=== PATIENT | female | born 1955 | race Caucasian/White ===

== ENCOUNTER → 2016-11-16 | Outpatient (CLI) | payer OTHER, MEDICAID ==
[~2016-11-16] MED LIST: ALBU18HF IH; ALBU8.5H3 INH; ALLO100T30 PO; ALPR1TAB2 PO; ASPI-496 PO; ATOR40TA PO; Amlodipine Besylate PO; BECL8.7A5 INH; CARV6.2512 PO; CEFD300C37 PO; CELE200C PO; CHOL100018 PO; CHOL500014 PO; CITA20TA9 PO; COMPAZINE PO; CYCL-259 PO; DEXA4TAB PO; DIAZ5TAB PO; DOCU100C8 PO; ENOX40SY4 SQ; FLUC200T PO; FURO-93 PO; HYDR15SO3 PO; IPRA14.7 INH; IPRA3AMP INH; IPRA4AER INH; LEVE500T53 PO; LEVO100T PO; LEVO175T5 PO; LEVO200T PO; LEVO200T5 PO; LISI-167 PO; LISI-170 PO; LISI5TAB7 PO; LORA-445 PO; METH750T87 PO; METO25TA35 PO; MOME17SP NS; MORP100T27 PO; MORP30TA81 PO; OMEG500C3 PO; ONDA4TAB10 PO; OXYC-74 PO; POTA10TA31; PRED20TA PO; PROAIR INH; QVAR INH; TIZA4CAP PO; TRAM50TA2 PO; ZONI50CA2 PO
== END ==
LOC: CFH 12:50
PROVIDERS: ATTEND Nurse Practitioner Family
DX: Z02.9 Encounter for administrative examinations, unspecified (principal)

== ENCOUNTER → 2017-02-01 | Outpatient (CLI) | payer OTHER, MEDICAID | END | disposition home or self-care (01) | LOC: CFH 10:19 | PROVIDERS: ATTEND Nurse Practitioner Family | DX: Z12.31 Encounter for screening mammogram for malignant neoplasm of breast (principal); Z85.3 Personal history of malignant neoplasm of breast; Z92.21 Personal history of antineoplastic chemotherapy; Z92.3 Personal history of irradiation; Z90.12 Acquired absence of left breast and nipple | CPT/HCPCS: G0202 ==

== ENCOUNTER 2018-01-28 13:42 | Inpatient (IN) | payer OTHER, MEDICAID ==
[~2018-01-28] VITALS: Ht 157.5 cm; Wt 69.3 kg
[~2018-01-28 13:42] MED LIST changes: -ALBU8.5H3 INH; +ALBU8.5H8 INH; -BECL8.7A5 INH; +BECL8.7A7 INH; +CHOL100012 PO; -CHOL100018 PO; -CHOL500014 PO; +CHOL500045 PO; +DOCU100C33 PO; -DOCU100C8 PO; -IPRA3AMP INH; +IPRA3AMP30 INH; +OXYC-296 PO; -OXYC-74 PO
[2018-01-28] MEDS ORDERED: SODIUM CHLORIDE 0.9% 1,000ML IVBOLUS ONE ×2 (14:00)
[2018-01-28 14:34] LABS: BASOPHILS # (AUTO) 0.06 x10^3/uL (0-0.1); BASOPHILS % (AUTO) 1 % (0-1); EOSINOPHILS # (AUTO) 0.36 x10^3/uL (0-0.4); EOSINOPHILS % (AUTO) 4 % (1-7); LYMPHOCYTES % (AUTO) 15 % (22-44); MD NO; MEAN CORPUSCULAR HEMOGLOBIN 34.3 pg (27.0-34.8); MEAN CORPUSCULAR HGB CONC 34.3 g/dL (32.4-35.8); MEAN PLATELET VOLUME 8.1 fL (7.4-10.4); MONOCYTES # (AUTO) 0.67 x10^3/uL (0.2-0.8); MONOCYTES % (AUTO) 8 % (2-9); NEUTROPHILS # (AUTO) 5.98 x10^3/uL (1.8-6.8); NEUTROPHILS % (AUTO) 72 % (42-75); PLATELET COUNT 243 x10^3/uL (130-400); RED BLOOD COUNT 3.22 x10^6/uL (3.82-5.3); RED CELL DISTRIBUTION WIDTH 13.4 % (9.6-15.2)
[2018-01-28 14:43] LABS: ALANINE AMINOTRANSFERASE 11 U/L (12-78); ALBUMIN 2.8 g/dL (3.4-5.0); ANION GAP 7 mmol/L (5-15); CALCIUM 7.5 mg/dL (8.5-10.1); CHLORIDE 120 mmol/L (98-107)
[2018-01-28 14:47] LABS: ALKALINE PHOSPHATASE 60 U/L (45-117); BILIRUBIN,TOTAL 0.2 mg/dL (0.2-1.0); TOTAL PROTEIN 6.1 g/dL (6.4-8.2); TROPONIN I < 0.015 ng/mL (0.000-0.045)
[2018-01-28 14:55] LABS: INTERNATIONAL NORMALIZED RATIO 1.01 (0.93-1.1); PROTHROMBIN TIME 10.4 Seconds (9.6-11.5)
[2018-01-28] MEDS ORDERED: AZITHROMYCIN 500 MG in SODIUM CHLORIDE 0.9% 250 ML IV ONE (15:00)
[2018-01-28] MEDS ORDERED: CEFTRIAXONE PMX 1GM/50ML 50 ML IV ONE (15:00)
[2018-01-28] MEDS ORDERED: CEFTRIAXONE PMX 1GM/50ML 50 ML ONE (15:16)
[2018-01-28] MEDS ORDERED: POLYETHYLENE GLYCOL 17 GM PACKET PO PRN (16:30)
[2018-01-28] MEDS ORDERED: DOCUSATE 100 MG CAPSULE PO PRN (16:30)
[2018-01-28] MEDS ORDERED: ACETAMINOPHEN 325 MG TABLET PO PRN (16:30)
[2018-01-28] MEDS ORDERED: SODIUM CHLORIDE 0.9% 1,000 ML IV SCH (16:30)
[2018-01-28] MEDS ORDERED: BISACODYL 10 MG SUPP PR PRN (16:30)
[2018-01-28] MEDS ORDERED: MORP-52 PO (17:28)
[2018-01-28] MEDS ORDERED: ALBUTEROL SULFATE 2.5 MG/3 ML NPPB PRN (17:30)
[2018-01-28] MEDS ORDERED: LEVE500T53 PO (17:34)
[2018-01-28] MEDS ORDERED: ATOR20TA9 PO (17:34)
[2018-01-28] MEDS ORDERED: CYCL-259 PO (17:34)
[2018-01-28 17:38] VITALS: BP 148/95
[2018-01-28] MEDS ORDERED: SODIUM BICARBONATE 8.4% 150 MEQ in DEXTROSE 5% 1,000 ML IV ONE (19:30)
[2018-01-28 19:46] VITALS: BP 118/74
[2018-01-28 20:06] LABS: MICROSCOPIC INDICATED
[2018-01-28 20:27] LABS: CULTURE INDICATED? NO
[2018-01-28] MEDS ORDERED: ALBUTEROL/IPRATROPIUM 2.5MG/0.5MG, 3 ML NPPB PRN (20:30)
[2018-01-28] MEDS: HEPARIN 5,000 UNITS/ML, 1ML SQ SCH (20:37)
[2018-01-28] MEDS: LEVETIRACETAM 500 MG TABLET PO SCH (20:37)
[2018-01-29] MEDS: LEVETIRACETAM 500 MG TABLET PO SCH ×4 (01:22→19:45)
[2018-01-29 01:52] VITALS: BP 100/64
[2018-01-29] MEDS: OXYcodone/APAP 10/325MG TABLET PO PRN ×3 (03:29→13:56)
[2018-01-29] MEDS: LEVOTHYROXINE 100 MCG TABLET PO SCH (05:16)
[2018-01-29] MEDS: HEPARIN 5,000 UNITS/ML, 1ML SQ SCH ×3 (05:16→20:50)
[2018-01-29 05:21] LABS: ANION GAP 3 mmol/L (5-15); CALCIUM 7.3 mg/dL (8.5-10.1); CHLORIDE 122 mmol/L (98-107)
[2018-01-29 05:22] LABS: BASOPHILS # (AUTO) 0.01 x10^3/uL (0-0.1); BASOPHILS % (AUTO) 0 % (0-1); EOSINOPHILS % (AUTO) 4 % (1-7); LYMPHOCYTES # (AUTO) 1.12 x10^3/uL (1-3.4); LYMPHOCYTES % (AUTO) 22 % (22-44); MD NO; MEAN CORPUSCULAR HEMOGLOBIN 34.2 pg (27.0-34.8); MEAN CORPUSCULAR VOLUME 100.6 fL (80-100); MEAN PLATELET VOLUME 8.3 fL (7.4-10.4); MONOCYTES # (AUTO) 0.57 x10^3/uL (0.2-0.8); MONOCYTES % (AUTO) 11 % (2-9); NEUTROPHILS # (AUTO) 3.17 x10^3/uL (1.8-6.8); NEUTROPHILS % (AUTO) 63 % (42-75); PLATELET COUNT 204 x10^3/uL (130-400); RED BLOOD COUNT 2.93 x10^6/uL (3.82-5.3); RED CELL DISTRIBUTION WIDTH 14.1 % (9.6-15.2)
[2018-01-29 05:23] LABS: CREATININE 1.58 mg/dL (0.55-1.02)
[2018-01-29 07:16] VITALS: BP 107/71
[2018-01-29 07:45] LABS: MEAN CORPUSCULAR HEMOGLOBIN 33.7 pg (27.0-34.8); MEAN CORPUSCULAR HGB CONC 33.9 g/dL (32.4-35.8); MEAN CORPUSCULAR VOLUME 99.5 fL (80-100); MEAN PLATELET VOLUME 7.9 fL (7.4-10.4); PLATELET COUNT 202 x10^3/uL (130-400); RED BLOOD COUNT 2.93 x10^6/uL (3.82-5.3); RED CELL DISTRIBUTION WIDTH 13.6 % (9.6-15.2)
[2018-01-29 07:47] LABS: MD YES
[2018-01-29 07:58] LABS: ALANINE AMINOTRANSFERASE 10 U/L (12-78); ALBUMIN 2.4 g/dL (3.4-5.0); ANION GAP 5 mmol/L (5-15); CALCIUM 7.2 mg/dL (8.5-10.1); CHLORIDE 121 mmol/L (98-107); CREATININE 1.29 mg/dL (0.55-1.02)
[2018-01-29 07:59] LABS: BASOS#(MANUAL) 0.05 x10^3/uL (0-0.1); BASOS% (MANUAL) 1 % (0-1); EOS#(MANUAL) 0.24 x10^3/uL (0.0-0.4); EOS% (MANUAL) 5 % (1-7); LYMPH#(MANUAL) 1.01 x10^3/uL (1-3.4); LYMPHS% (MANUAL) 21 % (22-44); MONOS#(MANUAL) 0.53 x10^3/uL (0.3-2.7); MONOS% (MANUAL) 11 % (2-9); SEG#(MANUAL) 2.98 x10^3/uL (1.8-6.8); SEGS% (MANUAL) 62 % (42-75)
[2018-01-29 08:00] LABS: <PLATELET ESTIMATE> ADEQUATE; <PLT MORPHOLOGY> NORMAL PLT MORPH; <RBC MORPHOLOGY> NORMAL; ALKALINE PHOSPHATASE 52 U/L (45-117); BILIRUBIN,TOTAL 0.2 mg/dL (0.2-1.0); TOTAL PROTEIN 5.3 g/dL (6.4-8.2)
[2018-01-29 08:02] LABS: CALCIUM 7.2 mg/dL (8.5-10.1)
[2018-01-29 08:15] VITALS: BP 120/72
[2018-01-29] MEDS ORDERED: AZITHROMYCIN 500 MG in SODIUM CHLORIDE 0.9% 250 ML IV SCH (09:00)
[2018-01-29] MEDS: ZONISAMIDE 50 MG CAPSULE PO SCH ×2 (09:00→11:31)
[2018-01-29] MEDS: CEFTRIAXONE 1,000 MG in SODIUM CHLORIDE 0.9% 50 ML IV SCH ×2 (09:27→11:31)
[2018-01-29] MEDS: FLUTICASONE/VILANTEROL 100-25MCG/INH INH SCH (11:31)
[2018-01-29] MEDS ORDERED: ERGOCALCIFEROL 50,000 UNIT CAPSULE PO SCH (13:00)
[2018-01-29] MEDS: SODIUM CHLORIDE 0.45% 1,000 ML IV SCH (13:50)
[2018-01-29 14:05] VITALS: BP 109/66
[2018-01-29 18:50] VITALS: BP 112/72
[2018-01-29] MEDS: DOXYCYCLINE 100MG TABLET PO SCH (20:50)
[2018-01-30] MEDS: OXYcodone/APAP 10/325MG TABLET PO PRN ×2 (01:16→13:18)
[2018-01-30] MEDS: LEVETIRACETAM 500 MG TABLET PO SCH ×4 (01:16→19:46)
[2018-01-30] MEDS: SODIUM CHLORIDE 0.45% 1,000 ML IV SCH ×3 (01:16→16:34)
[2018-01-30 01:21] VITALS: BP 110/71
[2018-01-30] MEDS: HEPARIN 5,000 UNITS/ML, 1ML SQ SCH ×3 (05:42→21:27)
[2018-01-30] MEDS: LEVOTHYROXINE 100 MCG TABLET PO SCH (05:42)
[2018-01-30 05:45] LABS: BASOPHILS # (AUTO) 0.03 x10^3/uL (0-0.1); BASOPHILS % (AUTO) 1 % (0-1); EOSINOPHILS # (AUTO) 0.18 x10^3/uL (0-0.4); EOSINOPHILS % (AUTO) 6 % (1-7); LYMPHOCYTES # (AUTO) 1.08 x10^3/uL (1-3.4); LYMPHOCYTES % (AUTO) 34 % (22-44); MD NO; MEAN CORPUSCULAR HEMOGLOBIN 34.4 pg (27.0-34.8); MEAN CORPUSCULAR HGB CONC 34.8 g/dL (32.4-35.8); MEAN CORPUSCULAR VOLUME 98.9 fL (80-100); MEAN PLATELET VOLUME 8.3 fL (7.4-10.4); MONOCYTES # (AUTO) 0.31 x10^3/uL (0.2-0.8); MONOCYTES % (AUTO) 10 % (2-9); NEUTROPHILS # (AUTO) 1.63 x10^3/uL (1.8-6.8); NEUTROPHILS % (AUTO) 50 % (42-75); PLATELET COUNT 168 x10^3/uL (130-400); RED BLOOD COUNT 2.58 x10^6/uL (3.82-5.3); RED CELL DISTRIBUTION WIDTH 13.9 % (9.6-15.2)
[2018-01-30 05:49] LABS: ALBUMIN 2.1 g/dL (3.4-5.0); ANION GAP 4 mmol/L (5-15); CALCIUM 6.8 mg/dL (8.5-10.1); CHLORIDE 117 mmol/L (98-107)
[2018-01-30 05:55] LABS: % IRON SATURATION 34 % (20-55); CREATININE 0.71 mg/dL (0.55-1.02); IRON LEVEL 60 mcg/dL (50-170); TOTAL IRON BINDING CAPACITY 176 mcg/dL (250-450)
[2018-01-30 06:35] VITALS: BP 137/80
[2018-01-30] MEDS: DOXYCYCLINE 100MG TABLET PO SCH ×2 (09:00→21:27)
[2018-01-30] MEDS: ZONISAMIDE 50 MG CAPSULE PO SCH (09:40)
[2018-01-30] MEDS: FLUTICASONE/VILANTEROL 100-25MCG/INH INH SCH (09:41)
[2018-01-30 12:58] VITALS: BP 143/78
[2018-01-30 18:44] VITALS: BP 119/71
[2018-01-31] MEDS: LEVETIRACETAM 500 MG TABLET PO SCH ×3 (01:29→13:04)
[2018-01-31 02:58] VITALS: BP 141/92
[2018-01-31] MEDS: OXYcodone/APAP 10/325MG TABLET PO PRN ×2 (03:15→13:08)
[2018-01-31] MEDS: HEPARIN 5,000 UNITS/ML, 1ML SQ SCH ×2 (05:04→14:47)
[2018-01-31] MEDS: SODIUM CHLORIDE 0.45% 1,000 ML IV SCH (05:05)
[2018-01-31] MEDS: LEVOTHYROXINE 100 MCG TABLET PO SCH (05:05)
[2018-01-31 05:44] LABS: CALCIUM 7.6 mg/dL (8.5-10.1); CHLORIDE 116 mmol/L (98-107)
[2018-01-31 05:50] LABS: ALANINE AMINOTRANSFERASE 13 U/L (12-78); ALBUMIN 2.5 g/dL (3.4-5.0); ALKALINE PHOSPHATASE 55 U/L (45-117); ANION GAP 6 mmol/L (5-15); BILIRUBIN,TOTAL 0.2 mg/dL (0.2-1.0); CREATININE 0.79 mg/dL (0.55-1.02); TOTAL PROTEIN 5.6 g/dL (6.4-8.2)
[2018-01-31 08:05] VITALS: BP 159/99
[2018-01-31] MEDS: DOXYCYCLINE 100MG TABLET PO SCH (08:25)
[2018-01-31] MEDS: FLUTICASONE/VILANTEROL 100-25MCG/INH INH SCH (08:25)
[2018-01-31] MEDS: ZONISAMIDE 50 MG CAPSULE PO SCH (08:26)
[2018-01-31] MEDS ORDERED: LISINOPRIL 10 MG TABLET PO SCH (09:00)
[2018-01-31 09:26] LABS: MEAN CORPUSCULAR HEMOGLOBIN 33.3 pg (27.0-34.8); MEAN CORPUSCULAR HGB CONC 33.4 g/dL (32.4-35.8); MEAN CORPUSCULAR VOLUME 99.6 fL (80-100); MEAN PLATELET VOLUME 8.3 fL (7.4-10.4); PLATELET COUNT 220 x10^3/uL (130-400); RED BLOOD COUNT 3.07 x10^6/uL (3.82-5.3); RED CELL DISTRIBUTION WIDTH 13.8 % (9.6-15.2)
[2018-01-31 09:27] LABS: BASOPHILS % (AUTO) 0 % (0-1); EOSINOPHILS # (AUTO) 0.11 x10^3/uL (0-0.4); EOSINOPHILS % (AUTO) 2 % (1-7); LYMPHOCYTES # (AUTO) 1.03 x10^3/uL (1-3.4); LYMPHOCYTES % (AUTO) 19 % (22-44); MD NO; MONOCYTES # (AUTO) 0.26 x10^3/uL (0.2-0.8); MONOCYTES % (AUTO) 5 % (2-9); NEUTROPHILS % (AUTO) 74 % (42-75)
[2018-01-31 10:06] LABS: ALBUMIN 2.2 g/dL (3.4-5.0); ANION GAP 4 mmol/L (5-15); CALCIUM 7.4 mg/dL (8.5-10.1); CHLORIDE 117 mmol/L (98-107)
[2018-01-31 10:07] LABS: CREATININE 0.73 mg/dL (0.55-1.02)
[2018-01-31] MEDS ORDERED: LISI-167 PO (12:27)
[2018-01-31] MEDS ORDERED: FLUT1AER INH (12:27)
[2018-01-31] MEDS ORDERED: BISA10SU65 PR (12:27)
[2018-01-31] MEDS ORDERED: DOXY100T PO (12:27)
[2018-01-31] MEDS ORDERED: DOCU-131 PO (12:27)
[2018-01-31] MEDS ORDERED: ZONI50CA2 PO (12:27)
[2018-01-31] MEDS ORDERED: ALBU2.5V NPPB (12:27)
[2018-01-31] MEDS ORDERED: NEUTRA PHOS K 250 MG TABLET PO ONE (12:30)
[2018-01-31 14:27] VITALS: BP 154/90
== END 2018-01-31 19:36 | DRG 871 ==
LOC: ED 15:32 → EDIP 16:00 → 5SO 17:32
PROVIDERS: ADMIT Hospitalist; ATTEND Hospitalist
DX: A41.9 Sepsis, unspecified organism (principal); N17.0 Acute kidney failure with tubular necrosis; J18.9 Pneumonia, unspecified organism; E44.0 Moderate protein-calorie malnutrition; F11.20 Opioid dependence, uncomplicated; E87.0 Hyperosmolality and hypernatremia; J44.0 Chronic obstructive pulmonary disease with (acute) lower respiratory infection; R65.20 Severe sepsis without septic shock; D64.9 Anemia, unspecified; E03.9 Hypothyroidism, unspecified; E78.5 Hyperlipidemia, unspecified; E86.0 Dehydration; E87.8 Other disorders of electrolyte and fluid balance, not elsewhere classified; F32.9 Major depressive disorder, single episode, unspecified; G40.909 Epilepsy, unspecified, not intractable, without status epilepticus; G89.29 Other chronic pain; I10 Essential (primary) hypertension; J20.9 Acute bronchitis, unspecified; F17.210 Nicotine dependence, cigarettes, uncomplicated; Z98.1 Arthrodesis status; Z79.899 Other long term (current) drug therapy; Z99.81 Dependence on supplemental oxygen; Z88.2 Allergy status to sulfonamides; Z88.8 Allergy status to other drugs, medicaments and biological substances; Z85.3 Personal history of malignant neoplasm of breast; Z80.8 Family history of malignant neoplasm of other organs or systems; Z82.3 Family history of stroke; Z68.27 Body mass index [BMI] 27.0-27.9, adult
CPT/HCPCS: 36415; 36600; 71045; 71250; 76770; 80048; 80053; 80069; 81001; 82306; 82310; 82436; 82533; 82550; 82570; 82728; 82803; 83540; 83550; 83605; 83735; 83935; 83970; 84100; 84133; 84145; 84156; 84300; 84443; 84484; 84550; 85025; 85610; 87040; 87205; 93005; 94640; 96361; 96365; 96368; 99291; J0456; J0696; J1644; J7070; J7613; J7030; J7050

== ENCOUNTER 2018-03-05 15:16 | Emergency (ER) | payer OTHER, MEDICAID ==
[~2018-03-05] VITALS: Ht 177.8 cm; Wt 68.1 kg
[~2018-03-05 15:16] MED LIST changes: +ALBU2.5V NPPB; +ATOR20TA9 PO; +BISA10SU65 PR; +DOCU-131 PO; +DOXY100T PO; +FLUT1AER INH; +MORP-52 PO
[2018-03-05] MEDS ORDERED: ALBUTEROL/IPRATROPIUM 2.5MG/0.5MG, 3 ML NPPB ONE (16:00)
[2018-03-05] MEDS ORDERED: ALBUTEROL/IPRATROPIUM 2.5MG/0.5MG, 3 ML ONE (16:10)
[2018-03-05 16:47] VITALS: BP 113/64
== END 2018-03-05 17:56 | disposition home or self-care (01) ==
LOC: ED 16:28
DX: S93.492A Sprain of other ligament of left ankle, initial encounter (principal); S93.491A Sprain of other ligament of right ankle, initial encounter; I10 Essential (primary) hypertension; W18.39XA Other fall on same level, initial encounter; Y93.01 Activity, walking, marching and hiking; Y92.89 Other specified places as the place of occurrence of the external cause; Y99.8 Other external cause status; F17.200 Nicotine dependence, unspecified, uncomplicated; Z98.51 Tubal ligation status; Z90.89 Acquired absence of other organs; G89.29 Other chronic pain; Z85.3 Personal history of malignant neoplasm of breast; G40.909 Epilepsy, unspecified, not intractable, without status epilepticus; J44.9 Chronic obstructive pulmonary disease, unspecified
CPT/HCPCS: 73610; 73630; 94640; 99284; J7620

== ENCOUNTER → 2018-03-07 | Outpatient (CLI) | payer OTHER, MEDICAID | END | disposition home or self-care (01) | LOC: CFH 13:36 | PROVIDERS: ATTEND Physical Medicine & Rehabilitation Pain Medicine | DX: M51.36 Other intervertebral disc degeneration, lumbar region (principal); M48.061 Spinal stenosis, lumbar region without neurogenic claudication; J44.9 Chronic obstructive pulmonary disease, unspecified; C50.912 Malignant neoplasm of unspecified site of left female breast; F17.200 Nicotine dependence, unspecified, uncomplicated | CPT/HCPCS: 72148 ==

== ENCOUNTER → 2018-03-24 | Outpatient (CLI) | payer OTHER, MEDICAID | END | disposition home or self-care (01) | LOC: CFH 13:34 | PROVIDERS: ATTEND Nurse Practitioner Family | DX: N64.1 Fat necrosis of breast (principal); N63.20 Unspecified lump in the left breast, unspecified quadrant; Z85.3 Personal history of malignant neoplasm of breast | CPT/HCPCS: 77066 ==

== ENCOUNTER 2018-05-03 12:12 | Inpatient (IN) | payer OTHER, MEDICAID ==
[~2018-05-03] VITALS: Ht 177.8 cm; Wt 65.6 kg
[2018-05-03] VITALS (9 sets, daily range): BP systolic 154–215; BP diastolic 83–114
[2018-05-03] MEDS ORDERED: FENTANYL PF 100 MCG/2ML ONE (12:28)
[2018-05-03] MEDS ORDERED: FENTANYL PF 100 MCG/2ML IV ONE (12:30)
[2018-05-03] MEDS ORDERED: hydrALAzine 20 MG/ML, 1ML ONE (12:45)
[2018-05-03 12:57] LABS: HCT (SEDRATE) 40.3 % (34.6-47.8)
[2018-05-03 12:58] LABS: BASOPHILS # (AUTO) 0.02 x10^3/uL (0-0.1); BASOPHILS % (AUTO) 0 % (0-1); EOSINOPHILS # (AUTO) 0.21 x10^3/uL (0-0.4); EOSINOPHILS % (AUTO) 3 % (1-7); LYMPHOCYTES # (AUTO) 1.05 x10^3/uL (1-3.4); LYMPHOCYTES % (AUTO) 16 % (22-44); MD NO; MEAN CORPUSCULAR HEMOGLOBIN 32.5 pg (27.0-34.8); MEAN CORPUSCULAR HGB CONC 33.6 g/dL (32.4-35.8); MEAN CORPUSCULAR VOLUME 96.8 fL (80-100); MEAN PLATELET VOLUME 7.3 fL (7.4-10.4); MONOCYTES # (AUTO) 0.34 x10^3/uL (0.2-0.8); MONOCYTES % (AUTO) 5 % (2-9); NEUTROPHILS # (AUTO) 4.88 x10^3/uL (1.8-6.8); NEUTROPHILS % (AUTO) 75 % (42-75); PLATELET COUNT 259 x10^3/uL (130-400); RED BLOOD COUNT 4.19 x10^6/uL (3.82-5.3); RED CELL DISTRIBUTION WIDTH 13.7 % (9.6-15.2)
[2018-05-03] MEDS ORDERED: hydrALAzine 20 MG/ML, 1ML IV ONE ×2 (13:00→14:00)
[2018-05-03 13:05] LABS: INTERNATIONAL NORMALIZED RATIO 0.98 (0.93-1.1); PROTHROMBIN TIME 10.2 Seconds (9.6-11.5)
[2018-05-03 13:08] LABS: ALBUMIN 3.1 g/dL (3.4-5.0); ANION GAP 7 mmol/L (5-15); CALCIUM 7.9 mg/dL (8.5-10.1); CHLORIDE 112 mmol/L (98-107); CREATININE 0.74 mg/dL (0.55-1.02)
[2018-05-03 13:12] LABS: TROPONIN I < 0.015 ng/mL (0.000-0.045)
[2018-05-03] MEDS ORDERED: OMNIPAQUE 350 MG/ML, 100ML BOTTLE ONE (13:53)
[2018-05-03] MEDS ORDERED: LORazepam 2 MG/ML, 1ML ONE (13:54)
[2018-05-03] MEDS ORDERED: LORazepam 2 MG/ML, 1ML IVPush ONE (14:30)
[2018-05-03] MEDS ORDERED: POLYETHYLENE GLYCOL 17 GM PACKET PO PRN (15:00)
[2018-05-03] MEDS ORDERED: DOCUSATE 100 MG CAPSULE PO PRN (15:00)
[2018-05-03] MEDS ORDERED: LISINOPRIL 20 MG TABLET PO ONE (15:00)
[2018-05-03] MEDS ORDERED: LABETALOL 5MG/ML, 20ML IVPush PRN ×2 (15:00→17:00)
[2018-05-03] MEDS ORDERED: ALBUTEROL SULFATE 2.5 MG NPPB PRN (15:00)
[2018-05-03] MEDS ORDERED: ONDANSETRON ODT 4 MG PO PRN (15:00)
[2018-05-03] MEDS ORDERED: AMLODIPINE BESYLATE 5 MG PO SCH (15:00)
[2018-05-03] MEDS ORDERED: LISINOPRIL 20 MG TABLET ONE (15:25)
[2018-05-03] MEDS ORDERED: AMLODIPINE 5 MG TABLET ONE (15:25)
[2018-05-03] MEDS ORDERED: LEVETIRACETAM 500 MG TABLET PO SCH (15:30)
[2018-05-03] MEDS ORDERED: LABETALOL 20 MG/4 ML ONE (15:37)
[2018-05-03] MEDS: LABETALOL 5MG/ML, 20ML IVPush PRN ×2 (15:39→16:29)
[2018-05-03] MEDS ORDERED: ALBUTEROL SULFATE 2.5MG/0.5ML NPPB SCH ×2 (16:00→21:00)
[2018-05-03] MEDS ORDERED: hydrALAzine 20 MG/ML, 1ML IV PRN (16:30)
[2018-05-03] MEDS: LEVETIRACETAM 1,000 MG in SODIUM CHLORIDE 0.9% 100 ML IV SCH (16:58)
[2018-05-03] MEDS ORDERED: LEVETIRACETAM 2,000 MG in SODIUM CHLORIDE 0.9% 100 ML IV ONE (17:00)
[2018-05-03] MEDS ORDERED: ENALAPRILAT 1.25 MG/ML, 2ML ONE (17:06)
[2018-05-03] MEDS: ENALAPRILAT 1.25 MG/ML, 2ML IV PRN (17:08)
[2018-05-03] MEDS ORDERED: ALBUTEROL/IPRATROPIUM 2.5MG/0.5MG, 3 ML NPPB PRN (18:00)
[2018-05-03] MEDS ORDERED: ATOR10TA9 PO (18:33)
[2018-05-03] MEDS ORDERED: cloniDINE 0.1MG PATCH TD SCH (20:00)
[2018-05-03] MEDS: ZONISAMIDE 50 MG CAPSULE PO SCH (20:31)
[2018-05-03] MEDS: AMLODIPINE 5 MG TABLET PO SCH (20:33)
[2018-05-03] MEDS: ATORVASTATIN 20 MG TABLET PO SCH (20:33)
[2018-05-03] MEDS: ONDANSETRON 2MG/ML, 2ML IVPush PRN (20:41)
[2018-05-03] MEDS ORDERED: BUDESONIDE 0.5 MG/2 ML INHA NPPB SCH (21:00)
[2018-05-03] MEDS: OXYcodone/APAP 10/325MG TABLET PO PRN (22:10)
[2018-05-04] VITALS (8 sets, daily range): BP systolic 142–188; BP diastolic 71–103
[2018-05-04] MEDS: ONDANSETRON 2MG/ML, 2ML IVPush PRN (03:03)
[2018-05-04] MEDS: OXYcodone/APAP 10/325MG TABLET PO PRN (03:08)
[2018-05-04] MEDS: LEVETIRACETAM 1,000 MG in SODIUM CHLORIDE 0.9% 100 ML IV SCH ×2 (04:12→17:00)
[2018-05-04 05:52] LABS: BASOPHILS # (AUTO) 0.05 x10^3/uL (0-0.1); BASOPHILS % (AUTO) 1 % (0-1); EOSINOPHILS % (AUTO) 0 % (1-7); LYMPHOCYTES # (AUTO) 0.81 x10^3/uL (1-3.4); LYMPHOCYTES % (AUTO) 9 % (22-44); MD NO; MEAN CORPUSCULAR HEMOGLOBIN 33.1 pg (27.0-34.8); MEAN CORPUSCULAR VOLUME 97.4 fL (80-100); MEAN PLATELET VOLUME 7.7 fL (7.4-10.4); MONOCYTES # (AUTO) 0.49 x10^3/uL (0.2-0.8); MONOCYTES % (AUTO) 5 % (2-9); NEUTROPHILS # (AUTO) 7.88 x10^3/uL (1.8-6.8); NEUTROPHILS % (AUTO) 85 % (42-75); PLATELET COUNT 291 x10^3/uL (130-400); RED BLOOD COUNT 4.43 x10^6/uL (3.82-5.3); RED CELL DISTRIBUTION WIDTH 14.1 % (9.6-15.2)
[2018-05-04] MEDS ORDERED: LEVOTHYROXINE 100 MCG TABLET PO SCH (06:00)
[2018-05-04 06:02] LABS: ALBUMIN 3.3 g/dL (3.4-5.0); ANION GAP 8 mmol/L (5-15); CALCIUM 8.5 mg/dL (8.5-10.1); CHLORIDE 109 mmol/L (98-107)
[2018-05-04 06:07] LABS: ALANINE AMINOTRANSFERASE 12 U/L (12-78); ALKALINE PHOSPHATASE 74 U/L (45-117); BILIRUBIN,TOTAL 0.4 mg/dL (0.2-1.0); CREATININE 0.93 mg/dL (0.55-1.02); TOTAL PROTEIN 6.6 g/dL (6.4-8.2)
[2018-05-04 07:55] LABS: FREE T4 (FREE THYROXINE) 1.18 ng/dL (0.76-1.46); THYROID STIMULATING HORMONE 0.393 mIU/L (0.358-3.740)
[2018-05-04] MEDS ORDERED: ZONISAMIDE 50 MG CAPSULE PO SCH (09:00)
[2018-05-04] MEDS ORDERED: FLUTICASONE/VILANTEROL 200-25MCG/INH INH SCH (09:00)
[2018-05-04] MEDS ORDERED: FLUTICASONE/VILANTEROL 100-25MCG/INH INH SCH (09:00)
[2018-05-04] MEDS: ZONISAMIDE 50 MG CAPSULE PO SCH ×2 (10:44→20:59)
[2018-05-04] MEDS: SENNA/DOCUSATE TABLET PO SCH (10:44)
[2018-05-04] MEDS: AMLODIPINE 5 MG TABLET PO SCH ×2 (10:44→20:59)
[2018-05-04] MEDS: LEVOTHYROXINE 100 MCG INJ IVPush SCH (10:45)
[2018-05-04] MEDS: ENALAPRILAT 1.25 MG/ML, 2ML IV PRN (15:48)
[2018-05-04] MEDS: ATORVASTATIN 20 MG TABLET PO SCH (20:59)
[2018-05-04] MEDS: CYCLOBENZAPRINE 10 MG TABLET PO PRN (23:01)
[2018-05-05 02:08] VITALS: BP 157/72
[2018-05-05] MEDS: LEVETIRACETAM 1,000 MG in SODIUM CHLORIDE 0.9% 100 ML IV SCH (04:25)
[2018-05-05 05:19] LABS: BASOPHILS # (AUTO) 0.13 x10^3/uL (0-0.1); BASOPHILS % (AUTO) 1 % (0-1); EOSINOPHILS # (AUTO) 0.02 x10^3/uL (0-0.4); EOSINOPHILS % (AUTO) 0 % (1-7); LYMPHOCYTES # (AUTO) 0.94 x10^3/uL (1-3.4); LYMPHOCYTES % (AUTO) 9 % (22-44); MD NO; MEAN CORPUSCULAR HEMOGLOBIN 32.8 pg (27.0-34.8); MEAN CORPUSCULAR HGB CONC 34.2 g/dL (32.4-35.8); MEAN CORPUSCULAR VOLUME 95.8 fL (80-100); MEAN PLATELET VOLUME 7.5 fL (7.4-10.4); MONOCYTES # (AUTO) 0.54 x10^3/uL (0.2-0.8); MONOCYTES % (AUTO) 5 % (2-9); NEUTROPHILS # (AUTO) 8.69 x10^3/uL (1.8-6.8); NEUTROPHILS % (AUTO) 84 % (42-75); PLATELET COUNT 257 x10^3/uL (130-400); RED BLOOD COUNT 4.41 x10^6/uL (3.82-5.3); RED CELL DISTRIBUTION WIDTH 13.8 % (9.6-15.2)
[2018-05-05 05:27] LABS: ANION GAP 8 mmol/L (5-15); CALCIUM 9.1 mg/dL (8.5-10.1); CHLORIDE 108 mmol/L (98-107); CREATININE 0.77 mg/dL (0.55-1.02)
[2018-05-05 05:28] LABS: ALANINE AMINOTRANSFERASE 12 U/L (12-78); ALBUMIN 3.6 g/dL (3.4-5.0)
[2018-05-05 05:30] LABS: ALKALINE PHOSPHATASE 69 U/L (45-117); BILIRUBIN,TOTAL 0.5 mg/dL (0.2-1.0); TOTAL PROTEIN 6.7 g/dL (6.4-8.2)
[2018-05-05 07:28] VITALS: BP 173/75
[2018-05-05] MEDS: ZONISAMIDE 50 MG CAPSULE PO SCH ×2 (08:53→20:44)
[2018-05-05] MEDS: AMLODIPINE 5 MG TABLET PO SCH ×2 (08:53→20:45)
[2018-05-05] MEDS: SENNA/DOCUSATE TABLET PO SCH (08:53)
[2018-05-05] MEDS: ALBUTEROL SULFATE 2.5 MG/3 ML NPPB SCH ×3 (09:30→20:40)
[2018-05-05] MEDS ORDERED: LISINOPRIL 10 MG TABLET PO SCH (09:30)
[2018-05-05] MEDS ORDERED: BUDESONIDE 0.5 MG/2 ML INHA NPPB SCH ×2 (09:30→12:00)
[2018-05-05] MEDS ORDERED: MIDAZOLAM 1 MG/ML, 5ML ONE (10:55)
[2018-05-05] MEDS ORDERED: FENTANYL PF 100 MCG/2ML ONE (10:55)
[2018-05-05] MEDS ORDERED: ALPRazolam 1MG TABLET ONE (11:03)
[2018-05-05] MEDS: LEVOTHYROXINE 100 MCG INJ IVPush SCH (11:58)
[2018-05-05 12:01] VITALS: BP 155/88
[2018-05-05] MEDS ORDERED: DIPHENHYDRAMINE 25 MG CAPSULE PO PRN (13:00)
[2018-05-05] MEDS: hydrOXyzine 10MG TABLET PO PRN ×2 (13:28→21:10)
[2018-05-05 14:37] VITALS: BP 168/91
[2018-05-05] MEDS ORDERED: POTASSIUM CHLORIDE 20 MEQ TAB.ER.PRT PO ONE (15:30)
[2018-05-05] MEDS: CARVEDILOL 3.125 MG TABLET PO SCH (17:45)
[2018-05-05] MEDS: BUDESONIDE 0.5 MG/2 ML INHA NPPB SCH (20:40)
[2018-05-05] MEDS: LEVETIRACETAM 500 MG TABLET PO SCH (20:44)
[2018-05-05] MEDS: ATORVASTATIN 20 MG TABLET PO SCH (20:45)
[2018-05-05] MEDS: LISINOPRIL 10 MG TABLET PO SCH (20:46)
[2018-05-05 20:54] VITALS: BP 151/73
[2018-05-06 02:10] VITALS: BP 141/74
[2018-05-06] MEDS: ALBUTEROL SULFATE 2.5 MG/3 ML NPPB SCH ×4 (03:30→21:00)
[2018-05-06] MEDS: CARVEDILOL 3.125 MG TABLET PO SCH ×2 (05:01→18:26)
[2018-05-06] MEDS: LEVOTHYROXINE 100 MCG TABLET PO SCH (05:01)
[2018-05-06 05:07] VITALS: BP 119/77
[2018-05-06] MEDS: BUDESONIDE 0.5 MG/2 ML INHA NPPB SCH ×2 (08:00→21:00)
[2018-05-06] MEDS ORDERED: FLUTICASONE/VILANTEROL 100-25MCG/INH INH SCH (09:00)
[2018-05-06] MEDS: ZONISAMIDE 50 MG CAPSULE PO SCH ×2 (09:17→21:00)
[2018-05-06] MEDS: LEVETIRACETAM 500 MG TABLET PO SCH ×2 (09:18→21:00)
[2018-05-06] MEDS: AMLODIPINE 5 MG TABLET PO SCH ×2 (09:18→21:00)
[2018-05-06] MEDS: LISINOPRIL 10 MG TABLET PO SCH ×2 (09:18→21:00)
[2018-05-06 09:25] VITALS: BP 127/72
[2018-05-06] MEDS ORDERED: POTASSIUM CHLORIDE 40 MEQ in SODIUM CHLORIDE 0.9% 500 ML IV ONE (11:00)
[2018-05-06] MEDS ORDERED: POTASSIUM CHLORIDE 20 MEQ TAB.ER.PRT PO ONE (11:30)
[2018-05-06] MEDS: IBUPROFEN 200 MG TABLET PO PRN ×2 (11:51→18:26)
[2018-05-06 13:52] VITALS: BP 138/81
[2018-05-06 19:26] VITALS: BP 140/83
[2018-05-06] MEDS: CYCLOBENZAPRINE 10 MG TABLET PO PRN (21:00)
[2018-05-06] MEDS: OXYcodone/APAP 5/325MG TABLET PO PRN (21:00)
[2018-05-06] MEDS: ATORVASTATIN 20 MG TABLET PO SCH (21:00)
[2018-05-07 02:17] VITALS: BP 130/82
[2018-05-07] MEDS: ALBUTEROL SULFATE 2.5 MG/3 ML NPPB SCH (03:30)
[2018-05-07 04:55] LABS: BASOPHILS # (AUTO) 0.05 x10^3/uL (0-0.1); BASOPHILS % (AUTO) 1 % (0-1); EOSINOPHILS # (AUTO) 0.31 x10^3/uL (0-0.4); EOSINOPHILS % (AUTO) 5 % (1-7); LYMPHOCYTES # (AUTO) 1.61 x10^3/uL (1-3.4); LYMPHOCYTES % (AUTO) 26 % (22-44); MD NO; MEAN CORPUSCULAR HEMOGLOBIN 32.3 pg (27.0-34.8); MEAN CORPUSCULAR VOLUME 95.1 fL (80-100); MEAN PLATELET VOLUME 7.6 fL (7.4-10.4); MONOCYTES # (AUTO) 0.59 x10^3/uL (0.2-0.8); MONOCYTES % (AUTO) 9 % (2-9); NEUTROPHILS # (AUTO) 3.74 x10^3/uL (1.8-6.8); NEUTROPHILS % (AUTO) 59 % (42-75); PLATELET COUNT 207 x10^3/uL (130-400); RED BLOOD COUNT 3.96 x10^6/uL (3.82-5.3)
[2018-05-07 04:59] LABS: ANION GAP 3 mmol/L (5-15); CALCIUM 8.4 mg/dL (8.5-10.1); CHLORIDE 115 mmol/L (98-107); CREATININE 0.86 mg/dL (0.55-1.02)
[2018-05-07] MEDS: LEVOTHYROXINE 100 MCG TABLET PO SCH (05:42)
[2018-05-07] MEDS: CARVEDILOL 3.125 MG TABLET PO SCH (05:42)
[2018-05-07 05:46] VITALS: BP 130/73
[2018-05-07 06:46] VITALS: BP 126/76
[2018-05-07] MEDS: LISINOPRIL 10 MG TABLET PO SCH (08:48)
[2018-05-07] MEDS: AMLODIPINE 5 MG TABLET PO SCH (08:48)
[2018-05-07] MEDS: LEVETIRACETAM 500 MG TABLET PO SCH (08:48)
[2018-05-07] MEDS: ZONISAMIDE 50 MG CAPSULE PO SCH (09:01)
[2018-05-07] MEDS ORDERED: ZONI50CA2 PO (10:46)
[2018-05-07] MEDS ORDERED: LISI-167 PO (10:46)
[2018-05-07] MEDS ORDERED: IBUP-1484 PO (10:46)
[2018-05-07] MEDS ORDERED: ATOR20TA9 PO (10:46)
[2018-05-07] MEDS ORDERED: CARV3.1212 PO (10:46)
[2018-05-07] MEDS ORDERED: LEVE500T53 PO (10:46)
[2018-05-07] MEDS ORDERED: POLY17PO5 PO (10:46)
[2018-05-07 12:53] VITALS: BP 120/79
[2018-05-07] MEDS: OXYcodone/APAP 5/325MG TABLET PO PRN (13:19)
== END 2018-05-07 14:06 | disposition home or self-care (01) | DRG 100 ==
LOC: ED 14:28 → EDIP 14:29 → ED 15:15 → 5SO 15:50
PROVIDERS: ADMIT Hospitalist; ATTEND Hospitalist
DX: G40.909 Epilepsy, unspecified, not intractable, without status epilepticus (principal); I67.83 Posterior reversible encephalopathy syndrome; I16.1 Hypertensive emergency; E03.9 Hypothyroidism, unspecified; E78.5 Hyperlipidemia, unspecified; F32.9 Major depressive disorder, single episode, unspecified; G89.29 Other chronic pain; H26.9 Unspecified cataract; I10 Essential (primary) hypertension; I34.0 Nonrheumatic mitral (valve) insufficiency; G43.909 Migraine, unspecified, not intractable, without status migrainosus; J44.9 Chronic obstructive pulmonary disease, unspecified; Z59.0 Homelessness; Z85.3 Personal history of malignant neoplasm of breast; Z79.891 Long term (current) use of opiate analgesic; Z86.19 Personal history of other infectious and parasitic diseases; Z86.73 Personal history of transient ischemic attack (TIA), and cerebral infarction without residual deficits; Z92.21 Personal history of antineoplastic chemotherapy; Z92.3 Personal history of irradiation; Z87.01 Personal history of pneumonia (recurrent); Z87.81 Personal history of (healed) traumatic fracture; Z86.14 Personal history of Methicillin resistant Staphylococcus aureus infection; Z88.8 Allergy status to other drugs, medicaments and biological substances; Z88.2 Allergy status to sulfonamides; Z88.1 Allergy status to other antibiotic agents; Z88.6 Allergy status to analgesic agent; Z79.899 Other long term (current) drug therapy; Z90.49 Acquired absence of other specified parts of digestive tract; Z98.51 Tubal ligation status; Z98.1 Arthrodesis status
CPT/HCPCS: 36415; 70450; 70496; 70551; 80048; 80053; 80177; 82040; 82607; 83735; 83880; 84100; 84439; 84443; 84484; 85025; 85379; 85610; 85651; 93005; 93306; 94640; 95819; 96374; 96375; 96376; G0378; J1953; J2250; J2405; J3010; J7613; J7626; Q9967; 92523-GN; J0360; J2060